=== PATIENT | female | born 1960 ===

== ENCOUNTER 2018-09-21 21:18 | Emergency (ER) | payer MEDICAID ==
--- NOTE | 2018-09-21 22:45 | C.PDOC ---
History Of Present Illness 58 year old female brought in from [facility] for ETOH abuse. Patient admits to drinking hennesy, states [birth year] birthday. Denies other complaints or injuries. <Abdullahi Fernandez - Last Filed: 09/22/18 00:14> History Per: Patient, EMS History/Exam Limitations: no limitations Onset/Duration Of Symptoms: Hrs Current Symptoms Are (Timing): Still Present Modifying Factor(s): Alcohol Recent travel outside of the [place]: No <Abdullahi Fernandez - Last Filed: 09/22/18 00:14> <Blaine Gomez - Last Filed: 09/22/18 05:33> Time Seen by Provider: 09/21/18 22:41 Chief Complaint (Nursing): Substance Abuse Past Medical History Reviewed: Historical Data, Nursing Documentation, Vital Signs Vital Signs: Last Vital Signs Temp 98 F 09/21/18 22:18 Pulse 66 09/21/18 22:18 Resp 20 09/21/18 22:18 BP 115/80 09/21/18 22:18 Pulse Ox 99 09/21/18 22:18 Family History: States: Unknown Family Hx - Social History Hx Alcohol Use: Yes Hx Substance Use: No - Immunization History Hx Tetanus Toxoid Vaccination: No Hx Influenza Vaccination: No Hx Pneumococcal Vaccination: No <Abdullahi Fernandez - Last Filed: 09/22/18 00:14> Vital Signs: Last Vital Signs Temp 98.3 F 09/22/18 05:26 Pulse 65 09/22/18 05:26 Resp 20 09/22/18 05:26 BP 132/90 09/22/18 05:26 Pulse Ox 97 09/22/18 05:26 <Blaine Gomez - Last Filed: 09/22/18 05:33> Review Of Systems Constitutional: Negative for: Fever, Chills Cardiovascular: Negative for: Chest Pain, Palpitations Respiratory: Negative for: Cough, Shortness of Breath Gastrointestinal: Negative for: Nausea, Vomiting Neurological: Negative for: Weakness, Numbness <Abdullahi Fernandez - Last Filed: 09/22/18 00:14> Physical Exam - Physical Exam Appears: Non-toxic, Other (ETOH on breath, no sign of injury) Skin: Normal Color, Warm Head: Atraumatic, Normacephalic Eye(s): bilateral: Normal Inspection Oral Mucosa: Moist Chest: Symmetrical, No Tenderness Cardiovascular: Rhythm Regular Respiratory: Normal Breath Sounds, No Rales, No Rhonchi, No Wheezing Gastrointestinal/Abdominal: Soft, No Tenderness Neurological/Psych: Oriented x3, Normal Speech <Abdullahi Fernandez - Last Filed: 09/22/18 00:14> ED Course And Treatment O2 Sat by Pulse Oximetry: 99 (Room air) Pulse Ox Interpretation: Normal <Abdullahi Fernandez - Last Filed: 09/22/18 00:14> Medical Decision Making Medical Decision Making: alcohol abuse medically stable, sleeping Bed [id number]: signed over to overnight MD pending sobriety in AM <Abdullahi Fernandez - Last Filed: 09/22/18 00:14> Disposition - Disposition Disposition Time: 01:00 <Abdullahi Fernandez - Last Filed: 09/22/18 00:14> <Blaine Gomez - Last Filed: 09/22/18 05:33> - Disposition Condition: GOOD Forms: [facility] (Bel[place]ian) - Clinical Impression Clinical Impression: Alcohol abuse - Scribe Statement The provider has reviewed the documentation as recorded by the Scribe [place] All medical record entries made by the Scribe were at my direction and personally dictated by me. I have reviewed the chart and agree that the record accurately reflects my personal performance of the history, physical exam, medical decision making, and the department course for this patient. I have also personally directed, reviewed, and agree with the discharge instructions and disposition. <Abdullahi Fernandez - Last Filed: 09/22/18 00:14> Physician Patient Turnover Patient Signed Over To: Blaine Gomez Handoff Comments: pending AM/Sobriety <Abdullahi Fernandez - Last Filed: 09/22/18 00:14> Disposition/Present on Arrival <Abdullahi Fernandez - Last Filed: 09/22/18 00:14> - Present on Arrival Any Indicators Present on Arrival: No - Disposition Have Diagnosis and Disposition been Completed?: Yes Disposition Time: 05:33 Patient Plan: Discharge - Notes Notes (Text): 09/22/18 05:33 Patient awake, alert, steady gait. <Blaine Gomez - Last Filed: 09/22/18 05:33> - Disposition Diagnosis: Alcohol abuse Disposition: HOME/ ROUTINE Patient Problems: Current Active Problems Problem Status Onset Alcohol abuse Acute Condition: GOOD Discharge Instructions (ExitCare): Alcohol Abuse and Alcoholism (DC) Forms: [employer] [facility] (Bel[place]ian)
[2018-09-22 03:00] VITALS: RESP 20
[2018-09-22 05:27] VITALS: BP 132/90; PULSE 65; TEMP 98.3; O2SAT 97
== END 2018-09-22 05:42 | disposition home or self-care (01) ==
LOC: C.ER 21:18
DX: F10.10 Alcohol abuse, uncomplicated (principal); Y90.9 Presence of alcohol in blood, level not specified